=== PATIENT | female | born 1985 | race Caucasian/White ===

== ENCOUNTER 2018-08-19 12:26 | Emergency (ER) | payer OTHER ==
--- NOTE | 2018-08-19 12:28 | ED.PDOC ---
General ED Provider: Dr. MARYA BELLA Chief Complaint: Sore Throat Stated Complaint: sore throat Time Seen by Physician: 12:36 Mode of Arrival: Walk-In Information Source: Patient Exam Limitations: No limitations Nursing and Triage Documentation Reviewed and Agree: Yes Does patient meet sepsis criteria?: No System Inflammatory Response Syndrome: Not Applicable Sepsis Protocol: For patient's 13 years and over: Temp is 96.8 and below OR 101 and greater Pulse >90 BPM Resp >20/minute Acutely Altered Mental Status Are patient's symptoms suggestive of a new infection, such as: -Pneumonia -Skin, Soft Tissue -Endocarditis -UTI -Bone, Joint Infection -Implantable Device -Acute Abdominal Infection -Wound Infection -Meningitis -Blood Stream Catheter Infection -Unknown EENT Complaint Exam - Throat Complaint/Exam Onset/Duration: 2-3 days Symptoms Are: Still present Timimg: Constant Initial Severity: Mild Current Severity: Mild Aggravating: Reports: None Alleviating: Reports: Antipyretics Associated Signs and Symptoms: Reports: Cough, Hoarseness Uvula Midline: Yes Kelli-tonsillar Fluctuence: No Scarlatinaform Rash Present: No Stridor Present: No Sinus Tenderness Present: No Tonsillar Hypertrophy Present: No Tonsillar Exudate Present: No Kelli-tonsillar Swelling Present: No Adenopathy Present: No Splenomegaly Present: No Differential Diagnoses: Influenza, Pharyngitis Review of Systems - Review Of Systems Constitutional: Reports: Weakness Eyes: Reports: No symptoms Ears, Nose, Mouth, Throat: Reports: Throat pain Respiratory: Reports: Cough, Other GI: Reports: No symptoms : Reports: No symptoms Musculoskeletal: Reports: No symptoms Skin: Reports: No symptoms Neurological: Reports: No symptoms Endocrine: Reports: No symptoms Hematologic/Lymphatic: Reports: No symptoms All Other Systems: Reviewed and Negative Past Medical History - Past Medical History Endocrine: Reports: None Cardiovascular: Reports: None Respiratory: Reports: None Hematological: Reports: None Gastrointestinal: Reports: GERD (hyperacidity take small white pill daily starts with a P RX emesis of same to days) Genitourinary: Reports: None Neuro/Psych: Reports: None, Other (denies interpersonal problemd is staying home with 3yo and FOB brother is ijn prison but not related to patietnactivity(is stressed by brother's problems) Patient with hx of opiate addiction/ Has used Meth/ current aquaintance attempting to assist patient with getting off meth. ) Musculoskeletal: Reports: None Cancer: Reports: None - Surgical History General Surgical History: Reports: None, Unknown - Family History Family History: Reports: None, Unknown - Social History Smoking Status: Current every day smoker, Heavy tobacco smoker Hx Substance Use: No Alcohol Screening: None Physical Exam - Physical Exam Appearance: Well-appearing Ill-appearing: None Pain Distress: None Eyes: SATNAM ENT: Erythema Neck: Supple Respiratory: Airway patent Cardiovascular: RRR GI/: Soft Musculoskeletal: Normal strength Skin: Warm Neurological: Sensation intact Psychiatric: Affect appropriate Critical Care Note - Critical Care Note Total Time (mins): 0 Course - Course Hematology/Chemistry: 08/19/18 12:42 Departure - Departure Time of Disposition: 13:44 Disposition: HOME SELF-CARE Discharge Problem: Viral syndrome Instructions: Viral Syndrome (ED) Condition: Good Pt referred to PMD for follow-up: Yes IPMP verified?: No Allergies/Adverse Reactions: Allergies No Known Allergies Allergy (Verified 08/19/18 12:30) Home Medications: Ambulatory Orders Levonorgestrel [Mirena] 1 each IY DAILY 06/06/18 Disposition Discussed With: Patient
[2018-08-19 12:30] VITALS: BP 134/73; TEMP 98.7; BMI 28.0
--- NOTE | 2018-08-19 13:03 | DI ---
EXAM: CHEST FRONTAL AND LATERAL VIEWS HISTORY: Cough and shortness of breath. COMPARISON: None FINDINGS: Heart size and mediastinal contour within normal limits. No acute infiltrates. Keisha l vascularity with no pleural fluid or pneumothorax. The bony thorax has no acute finding. IMPRESSION: No acute process.
[2018-08-19] MEDS ORDERED: ALBUTEROL 0.083% NEB NEB STA (13:23)
== END 2018-08-19 14:01 | disposition home or self-care (01) ==
LOC: ED 12:26
DX: B34.9 Viral infection, unspecified (principal); F17.210 Nicotine dependence, cigarettes, uncomplicated
CPT/HCPCS: 36415; 85025; 87502; 87651; 94640; 99283

== ENCOUNTER 2024-09-08 12:40 | Observation (INO) ==
[2024-09-08] MEDS: POTASSIUM CHLORIDE 10 MEQ/100 ML PREMIX 10 MEQ/100 ML BAG IV ONE (13:35)
--- NOTE | 2024-09-08 13:36 | ED.PDOC ---
General ED Provider: Dr. PHILLIP LANDRUM MD Chief Complaint: Abnormal Labs Stated Complaint: 39-year-old female history of chronic GI symptoms have been going on for years with intermittent nausea vomiting take Zofran for that. She had some nausea vomiting yesterday none today was following up outpatient was noted to have hypokalemia with a potassium of 2.6, magnesium was not checked. She is currently not nauseous has no abdominal pain she is following up with GI in September. She is drinking Gatorade at this point in time. She has some generalized weakness but otherwise no paresthesias, no palpitations no chest pain no shortness of breath no syncope. Has not had any fevers or chills. Denies any recent medication changes takes Protonix, Pepcid and Carafate. Has not been taking more albuterol than usual. Time Seen by Provider: 09/08/24 13:12 Information Source: Patient Primary Care Provider: CATHY SEARS APRN,[facility] Nursing and Triage Documentation Reviewed and Agree: Yes What is Opioid Naive?: *Opioid Naive implies the patient is not already taking opioids or not chronically receiving opioids on a daily basis. *PRN dosing is not "usually" associated with tolerance. *Patients are at higher risk of over-sedation and aspiration. What is Opioid Tolerant?: *Opioid Tolerance implies less than the expected response to an opioid. *Acquired tolerance is defined by the patient taking 60mg of oral morphine daily (or equianalgesic dose of another opioid) for 1 week or more. *Often associated with chronic pain. *May take more than usual dose to achieve desired pain control. Review of Systems Review Of Systems Constitutional: Denies Chills or Fever [facility] Medical History Strain of lumbar paraspinous muscle S39.012A - Strain of muscle, fascia and tendon of lower back, initial encounter (ICD-10) Injury of right great toe will get xray and call with results advised to rest, elevate foot, apply ice and take Ibuprofen as directed on bottle. S99.921A - Unspecified injury of right foot, initial encounter (ICD-10) Pain of right great toe M79.674 - Pain in right toe(s) (ICD-10) Pre-eclampsia O14.90 - Unspecified pre-eclampsia, unspecified trimester (ICD-10) Gastroenteritis K52.9 - Noninfective gastroenteritis and colitis, unspecified (ICD-10) Family History (Updated 09/08/24 @ 17:09 by DEMARCO COON RN) Mother Diabetes Hypertension Grandfather/Grandmother Lung cancer BROTHER Bipolar disorder FATHER Heart attack Social History (Updated 09/08/24 @ 17:10 by DEMARCO COON RN) Smoking and tobacco status: Current every day smoker Tobacco type: cigarettes Smoking packs per day: 2 Years smoked: 18 Tobacco: How many years used: 18 Quit status: not considering quitting Second hand smoke exposure: Yes Smoking risk assessment performed: No Alcohol intake: current Alcohol intake frequency: holidays/special occasions only Counseling given: No Counseling provided: none Substance use type: former substance user and marijuana Counseling given: No Counseling provided: none Denita/anabaptist: SIKHISM Special denita needs: No Agree to transfusion: Yes Adopted: No Caregiver/support person: Yes Foster care: No Household members: family Housing: house Marital status: U UNKNOWN Lives independently: Yes Number of children: 1 Number of grandchildren: 0 Highest education level completed: high school graduate Financial difficulty paying for basics: not applicable service: No MCC: No Current occupational status: employed Current occupation: [employer] worker Current occupational exposures/hazards: No Pets and animals: Yes Leisure activites: music History of recent travel: No Sexually active: Yes Do you think of yourself as: straight/heterosexual Current gender identity: female Seatbelt use: always Helmet use: No Drives intoxicated or rides with 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 Current diet type/program: regular Well-balanced diet: rarely Caffeine: Yes Eating out: 4 or more times/week Reads food labels: seldom or never During the past year weight has: decreased > 10 lbs Water heater temperature set < 120 degrees: No Working smoke detector in home: Yes Fire extinguisher in home: Yes Carbon monoxide detector in home: No Firearms in home: Yes Firearms unloaded and locked: Yes What type of physical activity do you participate in?: walking and swimming Physical activity functional status: independent ambulation How many days of moderate to strenuous exercise, like a brisk walk, did you do in the last 7 days: 3 Surgical History Status post cholecystectomy Z90.49 - Acquired absence of other specified parts of digestive tract (ICD- 10) Female Reproductive History Menstrual Age of Menarche: 14 Hx Hysterectomy: No Hx Tubal Ligation: No Physical Exam Physical Exam Appearance: Reports Well-appearing and No pain distress Eyes: Reports SATNAM and EOMI ENT: Reports Ears normal, Nose normal, Oropharynx normal and Other (Poor dentition) Neck: Supple Respiratory: Reports Airway patent and Breath sounds clear; Denies Crackles, Rhonchi or Wheezes Cardiovascular: Reports RRR, Pulses normal, No rub and No murmur GI/: Reports Soft and Nontender Musculoskeletal: Reports Normal strength and ROM intact Skin: Reports Warm and Dry Neurological: Reports Sensation intact, Motor intact, Reflexes intact, Alert and Oriented Psychiatric: Reports Affect appropriate Interpretation EKG Interpretation EKG Interpretation By: ED Physician Time of EKG #1: 13:35 Rate: Paulo Rhythm: Sinus Ectopy: None [place]: NL ST Segment: Normal Interpretation: QT interval 441 Course Course 09/08/24 14:47 Orders, Labs, Meds: Lab Review 09/08/24 09/08/24 14:47 15:35 Sodium 139.4 Potassium 2.65 L* Chloride 101.0 Carbon Dioxide 34.0 H Anion Gap 7.05 BUN 10.8 Creatinine 0.54 L Estimated GFR (MDRD) 126.00 BUN/Creatinine Ratio 20.00 Glucose 106.2 H Calcium 8.41 Magnesium 2.14 Total Bilirubin 0.42 AST 22.8 ALT 14.8 Alkaline Phosphatase 59.2 Total Protein 6.02 L Albumin 3.58 Globulin 2.44 Albumin/Globulin Ratio 1.46 SARS CoV-2 RNA Rapid ABI Negative Orders Category Date Time Status OBSERVATION [PLACE PATIENT OBSERVATION] .TO MEDSURG ADMISSION 09/08/24 15:29 Active (MONITORED BED) EKG-(ED ONLY) Stat CARDIO 09/08/24 13:17 Completed ACTIVITY .Early Mobilization for VTE Prevention CARE 09/08/24 15:27 Active INTAKE & OUTPUT Q8HR CARE 09/08/24 15:27 Active TELEMETRY MONITORING TELE CARE 09/08/24 15:29 Active VITAL SIGNS Q4HR CARE 09/08/24 15:27 Active REGULAR DIET DIETARY 09/08/24 Dinner Ordered BMP [BASIC METABOLIC PANEL] Timed LAB 09/08/24 22:00 Ordered CBC W/ AUTO DIFF DAILY@0600 LAB 09/09/24 06:00 Ordered CBC W/ AUTO DIFF DAILY@0600 LAB 09/10/24 06:00 Ordered CMP [COMPREHENSIVE METABOLIC PANEL] Stat LAB 09/08/24 14:47 Completed COMPREHENSIVE METABOLIC PANEL DAILY@0600 LAB 09/09/24 06:00 Ordered COMPREHENSIVE METABOLIC PANEL DAILY@0600 LAB 09/10/24 06:00 Ordered COVID [SARS COV-2 RNA RAPID ABI] Stat LAB 09/08/24 15:35 Completed MAGNESIUM DAILY@0600 LAB 09/09/24 06:00 Ordered MAGNESIUM Stat LAB 09/08/24 14:47 Completed Acetaminophen [Tylenol] Meds 09/08/24 15:27 Active 650 mg PO Q4H PRN Magnesium Sulfate [Magnesium Sulfate 1 gm/2 ml Vial] Meds 09/08/24 13:12 Discontinued 1 gm IVP ONCE ONE Potassium Chloride [K-Dur] Meds 09/08/24 13:13 Discontinued 40 meq PO ONCE ONE Potassium Chloride [K-Dur] Meds 09/08/24 15:31 Discontinued 40 meq PO ONCE ONE Potassium Chloride [Potassium Chloride 10 Meq/100 ml Meds 09/08/24 13:12 Discontinued Premix] 10 meq in 100 ml IV ONCE Potassium Chloride [Potassium Chloride 20 Meq/100 ml Meds 09/08/24 15:30 Discontinued Premix] 20 meq in 100 ml IV ONCE Potassium Chloride [Potassium Chloride 20 Meq/100 ml Meds 09/08/24 18:00 Active Premix] 20 meq in 100 ml IV ONCE Medications Generic Name Dose Route Start Last Admin Trade Name Freq PRN Reason Stop Dose Admin Acetaminophen 650 mg 09/08/24 15:27 Acetaminophen 325 Mg Tablet PO Q4H PRN Mild Pain Albuterol Sulfate 2 puff 09/08/24 17:41 Albuterol Sulfate 8 Gm Inhaler IH Q6H PRN Wheezing Famotidine 20 mg 09/08/24 21:00 Famotidine 20 Mg Tablet PO BID KAYA Fluticasone Propionate 2 spray 09/09/24 09:00 Fluticasone Propionate 16 Gm Nasal [place] MITRA DAILY KAYA Hydroxyzine HCl 25 - 50 mg 09/08/24 17:41 Hydroxyzine Hcl 25 Mg Tablet PO TID PRN Anxiety Potassium Chloride 20 meq in 100 mls @ 50 mls/hr 09/08/24 18:00 Potassium Chloride 20 Meq/100 Ml Premix IV 09/08/24 19:59 ONCE ONE Losartan Potassium 50 mg 09/09/24 09:00 Losartan Potassium 25 Mg Tablet PO DAILY [facility] Nicotine 1 patch 09/08/24 17:40 Nicotine 21 Mg Patch.Td24 TD DAILY [facility] Non-Formulary Medication 10 mg 09/08/24 17:45 Cetirizine [All Day Allergy (Cetirizine)] PO QDAY [facility] Ondansetron HCl 4 mg 09/08/24 17:41 Ondansetron Hcl 4 Mg Tablet PO Q6H PRN Nausea / Vomiting Pantoprazole Sodium 0 mg 09/08/24 18:00 Pantoprazole Sodium 40 Mg Tablet.Dr PO .COMPLEX KAYA Polyethylene Glycol 17 gm 09/08/24 18:00 Polyethylene Glycol 17 Gm Powd.Pack PO QDAY [facility] Sertraline HCl 25 mg 09/08/24 19:00 Sertraline Hcl 50 Mg Tablet PO 1900 [facility] Sucralfate 1 gm 09/08/24 17:45 Sucralfate 1 Gm Tablet PO 4XD [facility] Discontinued Medications Generic Name Dose Route Start Last Admin Trade Name Freq PRN Reason Stop Dose Admin Potassium Chloride 10 meq in 100 mls @ 100 mls/hr 09/08/24 13:12 09/08/24 13:35 Potassium Chloride 10 Meq/100 Ml Premix IV 09/08/24 14:11 100 mls/hr ONCE ONE Administration Potassium Chloride 20 meq in 100 mls @ 50 mls/hr 09/08/24 15:30 09/08/24 16:30 Potassium Chloride 20 Meq/100 Ml Premix IV 09/08/24 17:29 50 mls/hr ONCE ONE Administration Magnesium Sulfate 1 gm 09/08/24 13:12 09/08/24 13:39 Magnesium Sulfate Vial 1 Gm/2 Ml Vial IVP 09/08/24 13:13 1 gm ONCE ONE Administration Potassium Chloride 40 meq 09/08/24 13:13 09/08/24 13:37 Potassium Chloride 20 Meq Tab PO 09/08/24 13:14 40 meq ONCE ONE Administration Potassium Chloride 40 meq 09/08/24 15:31 09/08/24 16:28 Potassium Chloride 20 Meq Tab PO 09/08/24 15:32 40 meq ONCE ONE Administration Vital Signs: Temp Pulse Resp BP Pulse Ox 09/08/24 13:07 98.0 F 61 18 121/76 98 Discharge Plan Discharge Patient Disposition: PLACED OBSERVATION Discharge Problem: Acute hypokalemia Did you review [place] [employer] DIRECTOR for ALL controlled substances?: Not Applicable ED Provider: PHILLIP LANDRUM Physician Progress Note: Patient presenting for hypokalemia with generalized weakness but otherwise no symptoms. Currently not nausea vomiting. Tolerating Gatorade without any difficulty. Was sent in by PCP did review labs that showed a potassium of 2.6 and mag was not checked. Afebrile, vital stable, nontoxic and well-appearing, plan for electrolyte repletion will repeat labs. EKG performed which shows normal QT interval. Previous EKG reviewed but patient has been bradycardic before in the past. Patient remains hypokalemic without much change in potassium. Will admit on telemetry for repletion. Discussed with hospitalist.
[2024-09-08] MEDS: K-DUR PO ONE ×2 (13:37→16:28)
[2024-09-08] MEDS: MAGNESIUM SULFATE 1 GM/2 ML VIAL IVP ONE (13:39)
[2024-09-08 15:10] LABS: ALANINE AMINOTRANSFERASE 14.8 U/L (0-35); ALBUMIN 3.58 g/dL (3.5-5.0); ALKALINE PHOSPHATASE 59.2 U/L (38-126); ASPARTATE AMINO TRANSFERASE 22.8 U/L (14-36); BILIRUBIN,TOTAL 0.42 mg/dL (0.2-1.3); BLOOD UREA NITROGEN 10.8 mg/dL (7-17); CALCIUM 8.41 mg/dL (8.4-10.2); CREATININE 0.54 mg/dL (0.60-1.30); GLUCOSE 106.2 mg/dL (74-106); MAGNESIUM 2.14 mg/dL (1.6-2.3); SODIUM 139.4 mmol/L (134.5-145); TOTAL PROTEIN 6.02 g/dL (6.3-8.2)
[2024-09-08 15:12] LABS: POTASSIUM 2.65 mmol/L (3.5-5.1)
[2024-09-08] MEDS ORDERED: TYLENOL PO PRN (15:27)
--- NOTE | 2024-09-08 16:07 | PCM ---
Date of Service Date Seen by Provider: 09/08/24 Time Seen by Provider: 16:30 Admit Day/Time Admission Date: 09/08/24 Admission Time: 15:20 Reason for Admission Chief Complaint: HYPOKALEMIA Hospital Provider Hospital Provider: COLTON BECKHAM, [facility] [place] Physician Primary Care Physician: CATHY SEARS APRN,[facility] History of Present Illness History of Present Illness: 39 yo female with pmh of cyclical vomiting syndrome secondary to cannibis use, meth use, iron deficiency anemia, GERD, HINA, and psychiatric disorders presented to the ER for low potassium. Patient reported that she had been vomiting the last couple days. Has been out of some of her routine meds. Had scheduled labs by PCP and was contacted to come to the ER. Potassium was found to be 2.6. Patient denies any symptoms other than weakness. Does report she had chest pain a few days ago that went away on its own. She was given replacement in ER with minimal response. Admitted to med/surg observation. Case Discussed With Case Discussed With: Patient's case was discussed with the ER Physicians, Dr. Garza. [facility] Medical History Strain of lumbar paraspinous muscle S39.012A - Strain of muscle, fascia and tendon of lower back, initial encounter (ICD-10) Injury of right great toe will get xray and call with results advised to rest, elevate foot, apply ice and take Ibuprofen as directed on bottle. S99.921A - Unspecified injury of right foot, initial encounter (ICD-10) Pain of right great toe M79.674 - Pain in right toe(s) (ICD-10) Pre-eclampsia O14.90 - Unspecified pre-eclampsia, unspecified trimester (ICD-10) Gastroenteritis K52.9 - Noninfective gastroenteritis and colitis, unspecified (ICD-10) Surgical History Status post cholecystectomy Z90.49 - Acquired absence of other specified parts of digestive tract (ICD- 10) Family History (Updated 09/08/24 @ 17:09 by DEMARCO COON RN) Mother Diabetes Hypertension Grandfather/Grandmother Lung cancer BROTHER Bipolar disorder FATHER Heart attack Social History (Updated 09/08/24 @ 17:10 by DEMARCO COON RN) Smoking and tobacco status: Current every day smoker Tobacco type: cigarettes Smoking packs per day: 2 Years smoked: 18 Tobacco: How many years used: 18 Quit status: not considering quitting Second hand smoke exposure: Yes Smoking risk assessment performed: No Alcohol intake: current Alcohol intake frequency: holidays/special occasions only Counseling given: No Counseling provided: none Substance use type: former substance user and marijuana Counseling given: No Counseling provided: none Denita/hindu: TEMPLE Special denita needs: No Agree to transfusion: Yes Adopted: No Caregiver/support person: Yes Foster care: No Household members: family Housing: house Marital status: U UNKNOWN Lives independently: Yes Number of children: 1 Number of grandchildren: 0 Highest education level completed: high school graduate Financial difficulty paying for basics: not applicable service: No MCFP: No Current occupational status: employed Current occupation: [employer] worker Current occupational exposures/hazards: No Pets and animals: Yes Leisure activites: music History of recent travel: No Sexually active: Yes Do you think of yourself as: straight/heterosexual Current gender identity: female Seatbelt use: always Helmet use: No Drives intoxicated or rides with intoxicated transport truck driver: No Current diet type/program: regular Well-balanced diet: rarely Caffeine: Yes Eating out: 4 or more times/week Reads food labels: seldom or never During the past year weight has: decreased > 10 lbs Water heater temperature set < 120 degrees: No Working smoke detector in home: Yes Fire extinguisher in home: Yes Carbon monoxide detector in home: No Firearms in home: Yes Firearms unloaded and locked: Yes What type of physical activity do you participate in?: walking and swimming Physical activity functional status: independent ambulation How many days of moderate to strenuous exercise, like a brisk walk, did you do in the last 7 days: 3 Allergies Allergies Allergy/AdvReac Type Severity Reaction Status Date / Time No Known Allergies Allergy Verified 09/08/24 13:07 Current Medications Home Medications Acetaminophen (Acetaminophen 325 Mg Tablet) 650 mg PO Q4H PRN PRN Reason: Mild Pain Potassium Chloride (Potassium Chloride 20 Meq/100 Ml Premix) 20 meq in 100 mls @ 50 mls/hr IV ONCE ONE Stop: 09/08/24 17:29 Last Admin: 09/08/24 16:30 Dose: 50 mls/hr Potassium Chloride (Potassium Chloride 20 Meq/100 Ml Premix) 20 meq in 100 mls @ 50 mls/hr IV ONCE ONE Stop: 09/08/24 19:59 Advair Diskus 100 mcg-50 mcg/dose powder for inhalation (fluticasone propion- salmeterol) 1 inh inhalation BID 30 days #60 ea 03/26/23 [Rx Confirmed 09/08/24] albuterol sulfate 90 mcg/actuation aerosol inhaler 2 puff inhalation Q6H PRN shortness of breath or wheezing #8.5 grams 06/11/23 [Rx Confirmed 09/08/24] cetirizine 10 mg tablet (All Day Allergy (cetirizine)) 10 mg PO QDAY #30 tabs 11/11/23 [Rx Confirmed 09/08/24] losartan 50 mg tablet 50 mg PO DAILY for blood pressure #30 tabs 03/26/24 [Rx Confirmed 09/08/24] hydroxyzine HCl 25 mg tablet 25 - 50 mg (1 - 2 x 25 mg) PO TID PRN anxiety #90 tabs 06/08/24 [Rx Confirmed 09/08/24] fluticasone propionate 50 mcg/actuation nasal spray,suspension 2 spray BOTHNARES DAILY #16 grams 07/14/24 [Rx Confirmed 09/08/24] famotidine 20 mg tablet 20 mg PO BID gerd #60 tabs 08/12/24 [Rx Confirmed 09/08/24] ondansetron HCl 4 mg tablet 4 mg PO Q6H PRN nausea and vomiting #30 tabs 08/12/24 [Rx Confirmed 09/08/24] pantoprazole 40 mg tablet,delayed release See Rx Instructions .Route .COMPLEX #60 tabs 08/12/24 [Rx Confirmed 09/08/24] polyethylene glycol 3350 17 gram oral powder packet (Miralax) 17 g PO QDAY constipation #30 ea 08/12/24 [Rx Confirmed 09/08/24] sucralfate 1 gram tablet 1 g PO 4XD #120 tabs 08/12/24 [Rx Confirmed 09/08/24] sertraline 25 mg tablet 25 mg PO 1900 09/08/24 [History Confirmed 09/08/24] Opioid Naive vs. Tolerant Does Patient Take Opioids?: No Is Patient Opioid Naive?: Yes What is Opioid Naive?: *Opioid Naive implies the patient is not already taking opioids or not chronically receiving opioids on a daily basis. *PRN dosing is not "usually" associated with tolerance. *Patients are at higher risk of over-sedation and aspiration. Is Patient Opioid Tolerant?: No What is Opioid Tolerant?: *Opioid Tolerance implies less than the expected response to an opioid. *Acquired tolerance is defined by the patient taking 60mg of oral morphine daily (or equianalgesic dose of another opioid) for 1 week or more. *Often associated with chronic pain. *May take more than usual dose to achieve desired pain control. Review of Systems Constitutional: Reports Weakness Head: Reports Normocephalic Eyes: Reports No symptoms Ears: Reports No symptoms Nose: Reports No symptoms Mouth: Reports No symptoms Throat: Reports No symptoms Cardiovascular: Reports No symptoms Respiratory: Reports No symptoms Gastrointestinal: Reports Nausea and Vomiting Genitourinary: Reports No Symptoms Musculoskeletal: Reports No symptoms Endocrine: Reports No symptoms Hematology: Reports No symptoms Immunology: Reports No symptoms Neurological: Reports No symptoms Psychiatric: Reports No symptoms Physical examination Most Recent Vital Signs: Most Recent Vital Signs Temperature 98.0 F 09/08/24 13:07 Temperature Source Temporal Artery Scan 09/08/24 13:07 Pulse Rate 61 09/08/24 13:07 Respiratory Rate 18 09/08/24 13:07 Blood Pressure 121/76 09/08/24 13:07 O2 Sat by Pulse Oximetry 98 09/08/24 13:07 Height 5 ft 5 in 09/08/24 13:07 Weight 71.5 kg 09/08/24 13:07 Appearance: Positive No Apparent Distress and Alert and Oriented x3 Skin: Positive Warm and Good Turgor HEENT: Positive Normocephalic and PERRLA Neck: Positive Supple and Midline Trachea Chest/Lungs: Positive Symmetrical With Equal Breath Sounds, Clear to Auscultation Bilaterally and Good Air Movement all 4 Lung Gruber Heart: Positive RRR, Pulses Normal, No S3 Auscultated and No S4 Auscultated; Negative Rub, Murmur, Irregular Rhythm, Tachycardia or Bracycardia GI/: Positive Soft, Nontender, Bowel Sounds Normal and No Distention; Negative Tender or Mass Musculoskeletal: Positive Normal Gait and Station Extremities: Positive Intact Peripheral Pulses, Stable Joints Without Laxity and Good ROM in All Joints Neurological: Positive Sensation Intact, Motor intact, Reflexes Intact, Alert, Oriented and Muscle Strength 5/5 in Upper and Lower Extremities Bilaterally Psychiatric: Positive Oriented x4 Labs This Visit Labs This Visit: Labs This Visit 09/08/24 14:47 Sodium 139.4 Potassium 2.65 L* Chloride 101.0 Carbon Dioxide 34.0 H Anion Gap 7.05 BUN 10.8 Creatinine 0.54 L Estimated GFR (MDRD) 126.00 BUN/Creatinine Ratio 20.00 Glucose 106.2 H Calcium 8.41 Magnesium 2.14 Total Bilirubin 0.42 AST 22.8 ALT 14.8 Alkaline Phosphatase 59.2 Total Protein 6.02 L Albumin 3.58 Globulin 2.44 Albumin/Globulin Ratio 1.46 EKG Interpretation EKG Interpretation: no acute changes Review Statement Review Statement: I have independently reviewed and interpreted the labs/EKGs/imaging that were ordered by the ER provider. I have reviewed all outside records that are a vailable currently in our EMR including imaging/notes/labs from previous visits. Plan Plan: 1. Severe Hypokalemia - replacement ordered, serial bmp, telemetry 2. Cyclical Vomiting Syndrome - takes protonix, carafate, pepcid, and zofran. Has been instructed to stop marijuana use due to likely contributing factor since 2017. Had been following with GI Dr. Herrera. Cathy Sears sent new referral for second opinion at last PCP appointment to [facility]. 3. HTN - chronic, continue home medications 4. Psychiatric disorder - chronic, continue home medications DVT Prophylaxis: Ambulation Time Spent: Greater than 80 minutes spent with patient, 50% of the time spent with this patient was devoted to counseling and coordination of care. Advanced [facility] Plannin minutes spent discussing advance care planning. Disposition: Admit to: Med/surg Observation Full Code Discussed Plan of Care with Dr. Matt Clinton. Medications Medication Orders: Medications Ordered Category Date Time Status Acetaminophen [Tylenol] Meds 09/08/24 15:27 Active 650 mg PO Q4H PRN Potassium Chloride [Potassium Chloride 20 Meq/100 ml Meds 09/08/24 15:30 Active Premix] 20 meq in 100 ml IV ONCE Potassium Chloride [Potassium Chloride 20 Meq/100 ml Meds 09/08/24 18:00 Active Premix] 20 meq in 100 ml IV ONCE
[2024-09-08 16:18] LABS: SARS COV-2 RNA RAPID NAAT NEGATIVE (NEGATIVE)
[2024-09-08] MEDS: POTASSIUM CHLORIDE 20 MEQ/100 ML PREMIX 20 MEQ/100 ML BAG IV ONE ×2 (16:30→19:50)
[2024-09-08 17:22] VITALS: BMI 26.4
[2024-09-08] MEDS ORDERED: ATARAX PO PRN (17:41)
[2024-09-08] MEDS ORDERED: VENTOLIN HFA IH PRN (17:41)
[2024-09-08] MEDS: PROTONIX PO SCH (19:13)
[2024-09-08] MEDS: ZOLOFT PO SCH (19:14)
[2024-09-08] MEDS: CARAFATE PO SCH (19:14)
[2024-09-08] MEDS: NICODERM 21 MG TD SCH (19:15)
[2024-09-08] MEDS: PEPCID PO SCH (21:55)
[2024-09-08 22:26] LABS: BLOOD UREA NITROGEN 10.2 mg/dL (7-17); CALCIUM 8.39 mg/dL (8.4-10.2); CARBON DIOXIDE 30.7 mmol/L (22-30.0); CHLORIDE 105.7 mmol/L (98-107); CREATININE 0.63 mg/dL (0.60-1.30); GLUCOSE 106.4 mg/dL (74-106); POTASSIUM 3.53 mmol/L (3.5-5.1); SODIUM 139.9 mmol/L (134.5-145)
[2024-09-08] MEDS: MELATONIN PO PRN (23:14)
[2024-09-09] MEDS: ZOFRAN TAB PO PRN (04:03)
[2024-09-09 07:37] LABS: BASOPHILS # (AUTO) 0.1 K/uL (0-0.2); BASOPHILS % (AUTO) 0.9 % (0.0-3.0); EOSINOPHILS % (AUTO) 0.4 % (0.0-7.0); HEMATOCRIT 40.4 % (37.0-47.0); HEMOGLOBIN 12.4 g/dl (12.0-16.0); IMMATURE GRANULOCYTE % (AUTO) 0.1 % (0.0-5.0); LYMPHOCYTES # (AUTO) 2.4 K/uL (0.60-3.4); LYMPHOCYTES % (AUTO) 33.4 (10.0-50.0); MEAN CORPUSCULAR HEMOGLOBIN 25.7 pg (27.0-31.0); MEAN CORPUSCULAR HGB CONC 30.7 (31.8-35.4); MEAN CORPUSCULAR VOLUME 83.8 fl (81.0-99.0); MONOCYTES # (AUTO) 0.5 K/uL (0.4-2.0); MONOCYTES % (AUTO) 7.4 (0-10); NEUTROPHILS # (AUTO) 4.1 K/ul (2.0-6.9); NEUTROPHILS % (AUTO) 57.8 % (42.2-75.2); PLATELET COUNT 227 10^3/uL (140-440); RDW COEFFICIENT OF VARIATION 16.9 % (11.6-14.8); RED BLOOD COUNT 4.82 10^6/ul (4.20-5.40); WHITE BLOOD COUNT 7.04 K/ul (4.6-10.2)
[2024-09-09 07:50] LABS: ALANINE AMINOTRANSFERASE 17.4 U/L (0-35); ALBUMIN 3.94 g/dL (3.5-5.0); ALKALINE PHOSPHATASE 68.6 U/L (38-126); ASPARTATE AMINO TRANSFERASE 26.2 U/L (14-36); BILIRUBIN,TOTAL 0.54 mg/dL (0.2-1.3); BLOOD UREA NITROGEN 8.6 mg/dL (7-17); CALCIUM 9.03 mg/dL (8.4-10.2); CARBON DIOXIDE 28.3 mmol/L (22-30.0); CHLORIDE 108.4 mmol/L (98-107); CREATININE 0.64 mg/dL (0.60-1.30); GLUCOSE 115.1 mg/dL (74-106); MAGNESIUM 1.85 mg/dL (1.6-2.3); POTASSIUM 3.72 mmol/L (3.5-5.1); SODIUM 141.6 mmol/L (134.5-145); TOTAL PROTEIN 6.7 g/dL (6.3-8.2)
--- NOTE | 2024-09-09 08:04 | DCSUM ---
Admission Date Admission Date: 09/08/24 Discharge Date Discharge Date: 09/09/24 Admission Diagnosis Admission Diagnosis: 1. Severe Hypokalemia 2. Cyclical Vomiting Syndrome 3. HTN 4. Psychiatric disorder Discharge Diagnosis Discharge Diagnosis: 1. Severe Hypokalemia - Resolved 2. Cyclical Vomiting Syndrome - chronic, stable 3. HTN - chronic, uncontrolled due to being late refilling medications, added norvasc during stay 4. Psychiatric disorder - chronic, stable Hospital Provider Hospital Provider: COLTON BECKHAM, [facility] [place] Primary Care Physician: CATHY SEARS APRN,[facility] Summary of History and Physical Summary of History and Physical: 39 yo female with pmh of cyclical vomiting syndrome secondary to cannibis use, meth use, iron deficiency anemia, GERD, HINA, and psychiatric disorders presented to the ER for low potassium. Patient reported that she had been vomiting the last couple days. Has been out of some of her routine meds. Had scheduled labs by PCP and was contacted to come to the ER. Potassium was found to be 2.6. Patient denies any symptoms other than weakness. Does report she had chest pain a few days ago that went away on its own. She was given replacement in ER with minimal response. Admitted to med/surg observation. Hospital Course Subjective: During course of stay, potassium was replaced and improved from 2.6 up to 3.7 upon discharge. Only symptoms present were weakness which is resolved. No rhythm changes noted on tele. BP trended up and was running 180s/110s yesterday am. Patient was also having vomiting episodes and was in and out of the shower multiple times. Additional dose of 25 mg of losartan given after receiving home dose of 50 mg. This was ineffective. Norvasc 5 mg given and BP improved. Discussed causes of cyclic vomiting syndrome and to avoid marijuana. Discussed potassium rich foods. Follow-up with PCP in 1 week. Rx sent for norvasc 5mg daily Appearance: Pleasant, No Apparent Distress and Alert HEENT: MMM, Supple and No JVD CVS: No Murmur, No Rubs and No Gallop Abdomen: Soft, Non-Tender and No Distention Respiratory: No Dyspnea Extremities: No Edema Vital Signs: Most Recent Vital Signs Temperature 97.3 F L 09/09/24 05:14 Temperature Source Temporal Artery Scan 09/09/24 05:14 Temperature Source Temporal Artery Scan 09/08/24 13:07 Pulse Rate 54 L 09/09/24 06:18 Respiratory Rate 20 09/09/24 05:14 Blood Pressure 183/113 H 09/09/24 06:18 Blood Pressure Mean 136 09/09/24 06:18 Blood Pressure Left Arm 153/84 09/08/24 17:00 Blood Pressure Location Right Arm 09/09/24 06:18 Blood Pressure Position Supine 09/09/24 06:18 O2 Sat by Pulse Oximetry 98 09/09/24 05:14 Oxygen Delivery Method Room Air 09/09/24 07:00 Height 5 ft 5 in 09/08/24 17:00 Weight 72 kg 09/08/24 17:00 Telemetry Type Remote Telemetry 09/09/24 07:00 Telemetry Monitoring Continues 09/09/24 07:00 Telemetry Heart Rate 59 L 09/09/24 07:00 EKG MS Interval 0.18 09/09/24 07:00 EKG QRS Interval 0.10 09/09/24 07:00 Telemetry Strip Reading Sinus Paulo 09/09/24 07:00 Lab Results Last 24 Hours: 09/09/24 09/08/24 09/08/24 07:31 22:10 15:35 WBC 7.04 RBC 4.82 Hgb 12.4 Hct 40.4 MCV 83.8 MCH 25.7 L MCHC 30.7 L RDW Coeff of Sonja 16.9 H Plt Count 227 Immature Gran % (Auto) 0.1 Neut % (Auto) 57.8 Lymph % (Auto) 33.4 [place] % (Auto) 7.4 Eos % (Auto) 0.4 Baso % (Auto) 0.9 Neut # (Auto) 4.1 Lymph # (Auto) 2.4 [place] # (Auto) 0.5 Eos # (Auto) 0.0 Baso # (Auto) 0.1 Immature Gran # (Auto) 0.0 Sodium 141.6 139.9 Potassium 3.72 3.53 Chloride 108.4 H 105.7 Carbon Dioxide 28.3 30.7 H Anion Gap 8.62 7.03 BUN 8.6 10.2 Creatinine 0.64 0.63 Estimated GFR (MDRD) 104.00 106.00 BUN/Creatinine Ratio 13.43 16.19 Glucose 115.1 H 106.4 H Calcium 9.03 8.39 L Magnesium 1.85 Total Bilirubin 0.54 AST 26.2 ALT 17.4 Alkaline Phosphatase 68.6 Total Protein 6.70 Albumin 3.94 Globulin 2.76 Albumin/Globulin Ratio 1.42 SARS CoV-2 RNA Rapid ABI Negative 09/08/24 14:47 WBC RBC Hgb Hct MCV MCH MCHC RDW Coeff of Sonja Plt Count Immature Gran % (Auto) Neut % (Auto) Lymph % (Auto) [place] % (Auto) Eos % (Auto) Baso % (Auto) Neut # (Auto) Lymph # (Auto) [place] # (Auto) Eos # (Auto) Baso # (Auto) Immature Gran # (Auto) Sodium 139.4 Potassium 2.65 L* Chloride 101.0 Carbon Dioxide 34.0 H Anion Gap 7.05 BUN 10.8 Creatinine 0.54 L Estimated GFR (MDRD) 126.00 BUN/Creatinine Ratio 20.00 Glucose 106.2 H Calcium 8.41 Magnesium 2.14 Total Bilirubin 0.42 AST 22.8 ALT 14.8 Alkaline Phosphatase 59.2 Total Protein 6.02 L Albumin 3.58 Globulin 2.44 Albumin/Globulin Ratio 1.46 SARS CoV-2 RNA Rapid ABI Discharge Instructions Discharge Planning: Discharge Planning > 40 minutes If patient is discharged with left ventricular systolic dysfunction: no Discharged with a beta leif? [] If no, why not? [] Discharged with an tory/arb? [] If no, why not? [] Diagnosis: Hypokalemia Diet: Low sodium, low fat Activity: as tolerated Medications: * Norvasc 5 mg daily Follow-up with PCP in 1 week Discharge Medications: Medications at Discharge (Home Meds & RX) Advair Diskus 100 mcg-50 mcg/dose powder for inhalation (fluticasone propion- salmeterol) 1 inh inhalation BID 30 days #60 ea 03/26/23 albuterol sulfate 90 mcg/actuation aerosol inhaler 2 puff inhalation Q6H PRN shortness of breath or wheezing #8.5 grams 06/11/23 cetirizine 10 mg tablet (All Day Allergy (cetirizine)) 10 mg PO QDAY #30 tabs 11/11/23 losartan 50 mg tablet 50 mg PO DAILY for blood pressure #30 tabs 03/26/24 hydroxyzine HCl 25 mg tablet 25 - 50 mg (1 - 2 x 25 mg) PO TID PRN anxiety #90 tabs 06/08/24 fluticasone propionate 50 mcg/actuation nasal spray,suspension 2 spray BOTHNARES DAILY #16 grams 07/14/24 famotidine 20 mg tablet 20 mg PO BID gerd #60 tabs 08/12/24 ondansetron HCl 4 mg tablet 4 mg PO Q6H PRN nausea and vomiting #30 tabs 08/12/24 pantoprazole 40 mg tablet,delayed release See Rx Instructions .Route .COMPLEX #60 tabs 08/12/24 polyethylene glycol 3350 17 gram oral powder packet (Miralax) 17 g PO QDAY constipation #30 ea 08/12/24 sucralfate 1 gram tablet 1 g PO 4XD #120 tabs 08/12/24 sertraline 25 mg tablet 25 mg PO 0 09/08/24 amlodipine 5 mg tablet (Norvasc) 5 mg PO DAILY #30 tabs 09/10/24 Discharge Plan Discharge Discharge Orders: Discharge Patient (ONCE); Ordered 09/09/24 Ordered By: LOR LEWIS Activity Restrictions/Additional Instructions: Diagnosis: Hypokalemia Diet: Low sodium, low fat Activity: as tolerated Medications: * Norvasc 5 mg daily Follow-up with PCP in 1 week Instructions: Potassium Content of Foods List (GEN), Hypokalemia (GEN) Patient Disposition: HOME SELF-CARE Prescriptions: New amlodipine [Norvasc] 5 mg tablet 5 mg PO DAILY Qty: 30 0RF Continued fluticasone propionate 50 mcg/actuation spray,suspension 2 spray BOTHNARES DAILY Qty: 16 5RF sertraline 25 mg tablet 25 mg PO 1899 albuterol sulfate 90 mcg/actuation HFA aerosol inhaler 2 puff inhalation Q6H PRN (Reason: shortness of breath or wheezing) Qty: 8.5 5RF cetirizine [All Day Allergy (cetirizine)] 10 mg tablet 10 mg PO QDAY Qty: 30 5RF hydroxyzine HCl 25 mg tablet 25 - 50 mg PO TID PRN (Reason: anxiety) Qty: 90 2RF famotidine 20 mg tablet 20 mg PO BID Qty: 60 5RF pantoprazole 40 mg tablet,delayed release (DR/EC) See Rx Instructions .ROUTE .COMPLEX Qty: 60 5RF Dose Instruction: TAKE 1 TABLET BY MOUTH TWICE DAILY Rx Instructions: TAKE 1 TABLET BY MOUTH TWICE DAILY ondansetron HCl 4 mg tablet 4 mg PO Q6H PRN (Reason: nausea and vomiting) Qty: 30 2RF polyethylene glycol 3350 [Miralax] 17 gram powder in packet 17 g PO QDAY Qty: 30 2RF sucralfate 1 gram tablet 1 g PO 4XD Qty: 120 2RF fluticasone propion-salmeterol [Advair Diskus] 100-50 mcg/dose blister with device 1 inh inhalation BID 30 Days Qty: 60 2RF losartan 50 mg tablet 50 mg PO DAILY Qty: 30 5RF Did you review [place] [employer] [place] for ALL controlled substances?: No Discussed opioids are addictive and Narcan is available by prescription or from pharmacy.: No Condition: Fair Referrals: CATHY SEARS APRN,FNPBC [Primary Care Provider] - 09/23/24 3:00 pm
[2024-09-09] MEDS: FLONASE NAS SCH (08:48)
[2024-09-09] MEDS: MIRALAX PO SCH (08:49)
[2024-09-09] MEDS: CLARITIN PO SCH (08:49)
[2024-09-09] MEDS: COZAAR PO SCH (08:49)
[2024-09-09 09:18] VITALS: PULSE 60
[2024-09-09] MEDS: TORADOL IVP ONE (10:00)
[2024-09-09] MEDS: ZOFRAN SDV IVP ONE (10:00)
[2024-09-09 11:32] VITALS: BP 172/102; RESP 16; TEMP 97.2
[2024-09-09] MEDS: COZAAR PO ONE (12:06)
[2024-09-09] MEDS: NORVASC PO ONE (13:57)
[2024-09-09] MEDS ORDERED: ZOLOFT PO SCH (21:00)
== END 2024-09-09 15:55 | disposition home or self-care (01) ==
LOC: MEDSURG B 12:40 → ED 12:40 → MEDSURG B 16:40
PROVIDERS: ADMIT Hospitalist; ATTEND Nurse Practitioner Family
DX: R10.13 Epigastric pain; D50.9 Iron deficiency anemia, unspecified; K21.9 Gastro-esophageal reflux disease without esophagitis; E87.6 Hypokalemia; N92.0 Excessive and frequent menstruation with regular cycle; Z72.0 Tobacco use; M62.81 Muscle weakness (generalized); I10 Essential (primary) hypertension; Z79.899 Other long term (current) drug therapy; K44.9 Diaphragmatic hernia without obstruction or gangrene; Z20.822 Contact with and (suspected) exposure to COVID-19; R79.89 Other specified abnormal findings of blood chemistry; F99 Mental disorder, not otherwise specified; R11.2 Nausea with vomiting, unspecified; Z87.19 Personal history of other diseases of the digestive system; Z51.81 Encounter for therapeutic drug level monitoring; G47.33 Obstructive sleep apnea (adult) (pediatric); R19.5 Other fecal abnormalities